=== PATIENT | female | born 1975 | race Caucasian/White ===

== ENCOUNTER 2024-08-17 21:49 | Emergency (ER) | payer MEDICAID, SELFPAY ==
[2024-08-17 21:50] VITALS: BP 147/87; PULSE 72; RESP 16; TEMP 36.6; O2SAT 98; BMI 35.5
--- NOTE | 2024-08-17 21:52 | XRR_ITS ---
PROCEDURE INFORMATION: Exam: XR Chest Exam date and time: 08/17/2024 10:47 PM Age: 49 years old Clinical indication: Pain; Chest pressure; Additional info: Chest pain TECHNIQUE: Imaging protocol: Radiologic exam of the chest. Views: 1 view. COMPARISON: No relevant prior studies available. FINDINGS: Lungs: Unremarkable. No consolidation. Pleural spaces: Unremarkable. No pleural effusion. No pneumothorax. Heart/Mediastinum: Unremarkable. No cardiomegaly. Bones/joints: Unremarkable. XR/XR chest 1V portable [id number] IMPRESSION: No acute findings.
--- NOTE | 2024-08-17 21:54 | ECG_ITS ---
[employer] Test Date: 2024-08-17 Pat Name: Penny Greenwood Department: Room: Gender: Female Kaitara Taraka: : 1975 Requested By: Ayad Rios Order Number: [id number] Reading MD: DENNISE KELESY Measurements Intervals [place] Rate: 75 P: 81 WA: 173 QRS: 84 QRSD: 100 T: 97 QT: 387 QTc: 433 Interpretive Statements SINUS RHYTHM LOW QRS VOLTAGE IN PRECORDIAL LEADS [QRS DEFLECTION < 1.0 mV IN CHEST LEADS] MODERATE T-WAVE ABNORMALITY, CONSIDER ANTERIOR ISCHEMIA [-0.1+ mV T-WAVE IN V3/V4] No previous ECG available for comparison Electronically Signed On 08-18-2024 16:20:57 CDT by DENNISE KELSEY [id number]
[2024-08-17 22:22] LABS: Basophils # 0.1 10^3/uL (0.0-0.1); Basophils % 0.6 %; Eosinophils # 0.2 10^3/uL (0.0-0.8); Eosinophils % 1.5 %; Hematocrit 38.7 % (36-47); Lymphocytes # 2.9 10^3/uL (0.8-4.8); Lymphocytes % 29.2 %; Mean Corpuscular HGB Conc 31.8 g/dL (30-55); Mean Corpuscular Hemoglobin 29.9 pg (27-33); Mean Corpuscular Volume 93.9 fl (85-98); Mean Platelet Volume 9.9 fL (7.4-10.4); Monocytes # 0.5 10^3/uL (0.2-0.9); Monocytes % 5.4 %; Neutrophils % 62.7 %; Nucleated Red Blood Cells % 0 %; Platelet Count 313 10^3/cmm (157-399); Red Blood Count 4.12 10^6/uL (3.85-5.65); Red Cell Distribution Width 14.8 % (12.1-15.1); White Blood Count 9.89 10^3/uL (3.29-11.43)
[2024-08-17 22:38] LABS: Troponin(5th) Baseline 8 ng/L (0-10)
[2024-08-17 22:41] LABS: Alanine Aminotransferase 19 U/L (0-33); Albumin Level 4.1 g/dL (3.5-5.2); Alkaline Phosphatase 94 U/L (35-105); Anion Gap 14.9 (5-19); Aspartate Amino Transferase 15 U/L (0-32); Blood Urea Nitrogen 6 mg/dL (6-20); Calcium 9.3 mg/dL (8.5-10.5); Carbon Dioxide 24 mmol/L (22-29); Chloride 106 mmol/L (98-107); Creatinine Clr Calc Pharmacy 100.2681; Globulin 2.6 g/dL (1.3-4.6); Glomerular Filtration Rate 75.9 mL/min (90-130); Glucose 100 mg/dL (65-115); Lipase 34 U/L (13-60); Osmolality Calculated 290 mOsm/kg (285-295); Potassium 3.9 mmol/L (3.5-5.1); Sodium 141 mmol/L (136-145); Total Bilirubin 0.3 mg/dL (0.15-1.2); Total Protein 6.7 g/dL (6.6-8.7)
--- NOTE | 2024-08-17 23:09 | ED_ITS ---
HPI - Chest Pain 2 General: Chief Complaint: Chest Pain Stated Complaint: CP SOB just not feel right eyes/ head Time Seen by Provider: 08/17/24 23:05 History of Present Illness: 49-year-old female who presents emerged part with complaints of chest pain and shortness of breath. States that she just feels like a pressure on her chest that is occasionally sharp. She does smoke. She has been diagnosed with COPD. She does use BiPAP at night. She has chronic cough but no acute cough that is worsening. No fever. Related Data Home Medications ?Medication ?Instructions ?Recorded ?Confirmed lisinopril 5 mg tablet 5 mg PO DAILY 08/07/2008/07 potassium chloride 10 mEq 10 meq PO DAILY 08/07/20 tablet,extended release vitamin B complex (B 1 tab PO DAILY 08/07/2007/11 Complex-Vitamin B12 tablet) Allergies Allergy/AdvReac Type Severity Reaction Status Date / Time acetaminophen (From Percocet) Allergy Unknown Verified 08/07/20 15:26 oxycodone (From Percocet) Allergy Unknown Verified 08/07/20 15:26 PFSH ED 2 PFSH: Social History (Updated 08/07/20 @ 15:27 by Louie Perez LPN) Smoking and tobacco/nicotine status: current every day tobacco/nicotine user cigarettes Quit status (tobacco/nicotine): not considering quitting Second hand smoke exposure: Yes Alcohol intake: current Alcohol intake frequency: few times a week Substance/Drug Use: never Physical Exam 2 Const: COMMON NORMALS: no acute distress, average body habitus, patient oriented x3, no limitations, healthy appearing, alert and well nourished Neck/C-Spine: COMMON NORMALS: no JVD Resp: COMMON NORMALS: normal respiratory effort, No retractions, No use of accessory muscles, clear to auscultation bilaterally and percussion normal A USCULTATION: clear to auscultation bilaterally PERCUSSION: percussion normal Cardio: COMMON NORMALS: no JVD, regular rate, regular rhythm, S1 normal heart sound present, S2 normal heart sound present, No gallops present (Cardio), No clicks present (Cardio), No murmurs present (Cardio), No rub (Cardio) and Peripheral pulses 2+ throughout RATE: regular rate RHYTHM: regular rhythm HEART SOUNDS: S1 normal heart sound present and S2 normal heart sound present PERIPHERAL PULSES: Peripheral pulses 2+ throughout GI: COMMON NORMALS: Normal to inspection, nondistended, normoactive bowel sounds present, Soft to palpation, non-tender, No hepatosplenomegaly present, no masses and no bruits PALPATION: Yes Soft to palpation and Yes No hepatosplenomegaly present Neuro: COMMON NORMALS: patient oriented x3 SENSORIUM/ORIENTATION: Yes alert Course 2 Vital Signs: Vital signs: Vital Signs Temperature 97.9 F 08/17/24 21:50 Pulse Rate 71 08/18/24 00:45 Respiratory Rate 14 08/18/24 00:45 Blood Pressure 104/67 08/18/24 00:45 Pulse Oximetry 95 08/18/24 00:45 Oxygen Delivery Me thod Room Air 08/18/24 00:45 MDM - Chest Pain Medical Decision Making Patient presents emerged part with complaint of chest pain and shortness of breath that has been occurring for over 12 hours. Troponin is negative x 2. EKG shows nonspecific ST and T wave changes no acute ischemic changes. D-dimer is also negative. Patient has no significant abnormality noted on other labs or imaging. Patient's symptoms have resolved and sleeping comfortably here in the emergency department. She does have a history of COPD and smokes. Discussed with patient should follow-up with PCP to discuss [facility] cardiology follow-up for possible outpatient stress test. Do not see indication for admission at this time. Lab Data 08/17/24 22:11 08/17/24 22:11 Radiology Impressions Chest X-Ray 08/17/24 21:52 IMPRESSION: No acute findings. Laboratory Results WBC 9.89 10^3/uL (3.29-11.43) 08/17/24 22:11 RBC 4.12 10^6/uL (3.85-5.65) 08/17/24 22:11 Hgb 12.30 g/dL (11.27-16.99) 08/17/24 22:11 Hct 38.7 % (36-47) 08/17/24 22:11 MCV 93.9 fl (85-98) 08/17/24 22:11 MCH 29.9 pg (27-33) 08/17/24 22:11 MCHC 31.8 g/dL (30-55) 08/17/24 22:11 RDW 14.8 % (12.1-15.1) 08/17/24 22:11 Plt Count 313 10^3/cmm (157-399) 08/17/24 22:11 MPV 9.9 fL (7.4-10.4) 08/17/24 22:11 Neut % (Auto) 62.7 % 08/17/24 22:11 Lymph % (Auto) 29.2 % 08/17/24 22:11 [place] % (Auto) 5.4 % 08/17/24 22:11 Eos % (Auto) 1.5 % 08/17/24 22:11 Baso % (Auto) 0.6 % 08/17/24 22:11 Neut # (Auto) 6.20 10^3/uL (1.8-7.7) 08/17/24 22:11 Lymph # (Auto) 2.9 10^3/uL (0.8-4.8) 08/17/24 22:11 [place] # (Auto) 0.5 10^3/uL (0.2-0.9) 08/17/24 22:11 Eos # (Auto) 0.2 10^3/uL (0.0-0.8) 08/17/24 22:11 Baso # (Auto) 0.1 10^3/uL (0.0-0.1) 08/17/24 22:11 Nucleated RBC % (auto) 0 % 08/17/24 22:11 Nucleated RBCs # 0.0 /100WBC 08/17/24 22:11 D-Dimer 0.37 ug/mLFEU (0-0.59) 08/17/24 22:11 Sodium 141 mmol/L (136-145) 08/17/24 22:11 Potassium 3.9 mmol/L (3.5-5.1) 08/17/24 22:11 Chloride 106 mmol/L (98-107) 08/17/24 22:11 Carbon Dioxide 24 mmol/L (22-29) 08/17/24 22:11 Anion Gap 14.9 (5-19) 08/17/24 22:11 BUN 6 mg/dL (6-20) 08/17/24 22:11 Creatinine 0.8 mg/dL (0.5-0.9) 08/17/24 22:11 GFR Calculation 75.9 mL/min (90-130) L 08/17/24 22:11 Glucose 100 mg/dL (65-115) 08/17/24 22:11 Calculated Osmolality 290 mOsm/kg (285-295) 08/17/24 22:11 Calcium 9.3 mg/dL (8.5-10.5) 08/17/24 22:11 Total Bilirubin 0.3 mg/dL (0.15-1.2) 08/17/24 22:11 AST 15 U/L (0-32) 08/17/24 22:11 ALT 19 U/L (0-33) 08/17/24 22:11 Alkaline Phosphatase 94 U/L (35-105) 08/17/24 22:11 Troponin T Baseline 8 ng/L (0-10) 08/17/24 22:11 Troponin T 120 Minute 7.56 ng/L (0-10) 08/17/24 23:46 Delta Troponin T -0.44 ABS# (0-10) L 08/17/24 23:46 Total Protein 6.7 g/dL (6.6-8.7) 08/17/24 22:11 Albumin 4.1 g/dL (3.5-5.2) 08/17/24 22:11 Globulin 2.6 g/dL (1.3-4.6) 08/17/24 22:11 Lipase 34 U/L (13-60) 08/17/24 22:11 All radiology interpretation(s) finalized by discharge Discharge Plan Discharge Patient Disposition: Home Clinical Impression: Chest pain Condition: Stable Prescriptions: No Action lisinopril 5 mg tablet 5 mg PO DAILY vitamin B complex [B Complex-Vitamin B12] Tablet 1 tab PO DAILY potassium chloride 10 mEq tablet extended release 10 meq PO DAILY Discharge Orders: Discharge ED (Routine); Ordered 08/18/24 Ordered By: Stalin Lu Referrals: James Bernardo DO [Referring, Family Practice] Patient Instructions: Opioid Safety, Pain Management Print Language: Citizen Of [place] Coding Level of Care Code ED Access Nurse for Armando Barrientos
[2024-08-17 23:24] LABS: D Dimer 0.37 ug/mLFEU (0-0.59)
[2024-08-17] MEDS: aspirin 81 mg Chew Tablet 324 MG PO (23:41)
[2024-08-17 23:42] VITALS: BP 126/75; PULSE 66; RESP 16; O2SAT 95
--- NOTE | 2024-08-17 23:52 | ECG_ITS ---
[email or web address] [place] [facility] Date: 2024-08-17 Pat Name: Penny Greenwood Department: Room: Gender: Female Senior Chemical Process Engineer: : 1975 Requested By: Ayad Rios Order Number: [id number] Reading MD: DENNISE KELSEY Measurements Intervals [place] Rate: 69 P: 81 NV: 182 QRS: 86 QRSD: 87 T: 96 QT: 395 QTc: 425 Interpretive Statements SINUS RHYTHM LOW QRS VOLTAGE IN PRECORDIAL LEADS [QRS DEFLECTION < 1.0 mV IN CHEST LEADS] ANTEROSEPTAL MYOCARDIAL INFARCTION , OF INDETERMINATE AGE [40+ ms Q WAVE IN V1-V4] Compared to ECG 08/17/2024 21:54:22 Myocardial infarct finding now present T-wave abnormality no longer present Possible ischemia no longer present Electronically Signed On 08-18-2024 16:22:07 CDT by DENNISE KELSEY [email or web address]
[2024-08-17] MEDS: ipratropium-albuterol 3 mL Neb INHALATION (23:57)
[2024-08-17 23:59] VITALS: PULSE 68; RESP 18; O2SAT 96
[2024-08-18] VITALS: BP 111/78; PULSE 77; RESP 30; O2SAT 96
[2024-08-18 00:08] LABS: Troponin 5 2HR 7.56 ng/L (0-10); Troponin 5 2HR Delta -0.44 ABS# (0-10)
[2024-08-18 00:45] VITALS: BP 104/67; PULSE 71; RESP 14; O2SAT 95
[2024-08-18 01:43] VITALS: BP 105/71; PULSE 89; O2SAT 94
== END 2024-08-18 01:40 | disposition home or self-care (01) ==
PROVIDERS: Emergency Medicine; Emergency Provider Emergency Medicine
DX: R07.9 Chest pain, unspecified (principal); F17.210 Nicotine dependence, cigarettes, uncomplicated
CPT/HCPCS: 36415; 71045; 80053; 83690; 84484; 85025; 85378; 93005; 94640; 99285; J9999